=== PATIENT | female | born 1955 | race Caucasian/White ===

== ENCOUNTER 2019-03-30 05:00 | Day surgery (SDC) | payer OTHER ==
[~2019-03-30] VITALS: Ht 157.5 cm; Wt 64.1 kg
[~2019-03-30 05:00] MED LIST: CeFAZolin 2 GM/DEXTROSE 50 ML IV ONE; RINGERS SOLUTION,LACTATED 1,000 ML IV ONE
[2019-03-30] MEDS ORDERED: EPHEDrine SULFATE 50 MG/ML VIAL IM ONE (05:01)
[2019-03-30] MEDS ORDERED: SUCCINYLCHOLINE CHLORIDE 20 MG/ML 10 ML VIAL IVP ONE (05:01)
[2019-03-30] MEDS ORDERED: LIDOCAINE/PF 2% 5 ML SYRINGE IVP ONE (05:01)
[2019-03-30] MEDS ORDERED: PROPOFOL 1% 20 ML VIAL IVP ONE (05:01)
[2019-03-30 05:52] LABS: BASOPHILS % (AUTO) 1.2 % (0.0-2.0); HEMATOCRIT 41.9 % (36-46); HEMOGLOBIN 13.7 g/dL (12.0-16.0); LYMPHOCYTES # (AUTO) 3.1 K/uL (1.0-4.8); LYMPHOCYTES % (AUTO) 59.5 % (22.0-44.0); MEAN CORPUSCULAR HEMOGLOBIN 27.5 pg (26.0-34.0); MEAN CORPUSCULAR HGB CONC 32.8 G/dL (31.0-37.0); MEAN CORPUSCULAR VOLUME 84 fL (80-100); MONOCYTES # (AUTO) 0.2 K/uL (0.1-1.0); MONOCYTES % (AUTO) 4.5 % (2.0-9.0); NEUTROPHILS # (AUTO) 1.8 K/uL (1.8-7.7); NEUTROPHILS % (AUTO) 33.8 % (40.0-70.0); PLATELET COUNT (AUTO) 173 K/uL (150-450); RED CELL DISTRIBUTION WIDTH 14.5 % (11.5-14.5)
[2019-03-30] MEDS ORDERED: IBUP-1506 PO (06:02)
[2019-03-30] MEDS ORDERED: LOSA-88 PO (06:02)
[2019-03-30] MEDS ORDERED: GABA-531 PO (06:02)
[2019-03-30 06:06] LABS: ANION GAP 9 mmol/L (8-16); CALCIUM, TOTAL 9.2 mg/dL (8.8-10.5); CARBON DIOXIDE 29 mmol/L (22-29); CHLORIDE 104 mmol/L (98-107); CREATININE 0.77 mg/dL (0.60-1.30); GLOMERULAR FILTR. RATE CALC > 60 mL/min (>60); GLUCOSE,RANDOM 141 mg/dL (70-110); POTASSIUM 3.5 mmol/L (3.5-5.1); SODIUM SERUM 142 mmol/L (136-145); UREA NITROGEN, BLOOD 10 mg/dL (7-18)
[2019-03-30] MEDS ORDERED: SODIUM CL IRRIG SOLN BAG 6,000 ML IRRIG ONE (06:14)
[2019-03-30] MEDS ORDERED: BUPIVACAINE HCL/PF 0.25% 30 ML VIAL ONE (06:14)
[2019-03-30] MEDS ORDERED: MUPIROCIN CALCIUM 2% 22 GM OINTMENT ONE (06:15)
[2019-03-30] MEDS ORDERED: BUPIVACAINE LIPOSOME/PF 1.3%-13.3MG/ML SUSPENSION 10 ML VIAL INJ ONE (06:35)
[2019-03-30] MEDS ORDERED: LIDOCAINE/PF 1% 2 ML VIAL ID ONE (07:00)
[2019-03-30] MEDS ORDERED: CeFAZolin 2 GM/DEXTROSE 50 ML IV ONE (07:00)
[2019-03-30] MEDS ORDERED: ACETAMINOPHEN 1000 MG/ISO-OSM 100 ML IV ONE (09:15)
[2019-03-30] MEDS ORDERED: OxyCODONE HCL 5 MG IR TABLET PO ONE (09:15)
[2019-03-30] MEDS ORDERED: DiphenhydrAMINE HCL 50 MG/ML VIAL IVP PRN (09:45)
[2019-03-30] MEDS ORDERED: ROPIVACAINE HCL/PF 0.2% 100 ML ED PRN (09:45)
[2019-03-30] MEDS ORDERED: NALBUPHINE HCL 10 MG/ML VIAL IVP PRN (09:45)
[2019-03-30] MEDS ORDERED: ONDANSETRON HCL 4 MG/2 ML VIAL IVP PRN (09:45)
== END 2019-03-30 10:30 | disposition home or self-care (01) ==
LOC: SURGERY 05:00
PROVIDERS: ATTEND Orthopaedic Surgery
DX: S83.272A Complex tear of lateral meniscus, current injury, left knee, initial encounter (principal); M65.862 Other synovitis and tenosynovitis, left lower leg; M23.42 Loose body in knee, left knee; M94.262 Chondromalacia, left knee; I10 Essential (primary) hypertension; X58.XXXA Exposure to other specified factors, initial encounter; Y93.89 Activity, other specified; Y92.89 Other specified places as the place of occurrence of the external cause; Y99.8 Other external cause status; Z79.899 Other long term (current) drug therapy; Z79.01 Long term (current) use of anticoagulants
CPT/HCPCS: 29881; 29876; 36415; 80048; 85025; 85610; 85730; 88304; 93005; J0131; J0330; J0690; J2704; J3490 ×3; J7120